=== PATIENT | male | born 1995 | race Caucasian/White ===

== ENCOUNTER 2022-03-03 08:50 | Inpatient (IN) | payer MEDICAID, OTHER ==
--- NOTE | 2022-03-03 09:17 | ED ---
Psych HPI <Robb Schmid - Last Filed: 03/03/22 13:24> - General Source: patient, RN notes reviewed Mode of arrival: ambulatory Limitations: no limitations <Efraín Paul - Last Filed: 03/03/22 14:14> - General Chief Complaint: Psychiatric Symptoms Stated Complaint: mental health Time Seen by Provider: 03/03/22 09:05 - History of Present Illness Initial Comments: 26-year-old male presents emergency Department for psychiatric evaluation. Patient states that he just needs to to be evaluated by psych as he states he was involved in a life that he did not want to be involved in. Patient denies any suicidal or homicidal he has meant to marijuana use no alcohol abuse denies any drug use. Patient states that he has no physical complaints. Patient states he is supposed be on psychiatric medications though is currently not on any meds. (Efraín Paul) - Related Data Home Medications Medication Instructions Recorded Confirmed No Known Home Medications 02/16/15 03/03/22 Allergies Allergy/AdvReac Type Severity Reaction Status Date / Time chlorine Allergy Dyspnea & Uncoded 03/03/22 09:36 Cough Review of Systems ROS Other: All systems not noted in ROS Statement are negative. <Robb Schmid - Last Filed: 03/03/22 13:24> ROS Other: All systems not noted in ROS Statement are negative. <Efraín Paul - Last Filed: 03/03/22 14:14> ROS Statement: Those systems with pertinent positive or pertinent negative responses have been documented in the HPI. Past Medical History Past Medical History: Hypertension History of Any Multi-Drug Resistant Organisms: None Reported Past Surgical History: No Surgical Hx Reported Past Psychological History: Anxiety, Bipolar, Depression Smoking Status: Vaper Past Alcohol Use History: None Reported Past Drug Use History: Marijuana <Efraín Paul - Last Filed: 03/03/22 14:14> General Exam Limitations: no limitations General appearance: alert, in no apparent distress Head exam: Present: atraumatic, normocephalic, normal inspection Eye exam: Present: normal appearance, PERRL, EOMI. Absent: scleral icterus, conjunctival injection, periorbital swelling ENT exam: Present: normal exam, mucous membranes moist Neck exam: Present: normal inspection, full ROM. Absent: tenderness, meningismus, lymphadenopathy Respiratory exam: Present: normal lung sounds bilaterally. Absent: respiratory distress, wheezes, rales, rhonchi, stridor Cardiovascular Exam: Present: regular rate, normal rhythm, normal heart sounds. Absent: systolic murmur, diastolic murmur, rubs, gallop, clicks GI/Abdominal exam: Present: soft, normal bowel sounds. Absent: distended, tenderness, guarding, rebound, rigid Neurological exam: Present: alert Psychiatric exam: Present: normal affect, normal mood Skin exam: Present: warm, dry, intact, normal color. Absent: rash <Efraín Paul - Last Filed: 03/03/22 14:14> Course Vital Signs 03/03/22 08:51 Temperature 98.5 F Pulse Rate 97 Respiratory 18 Rate Blood Pressure 154/86 O2 Sat by Pulse 98 Oximetry Medical Decision Making <Robb Schmid - Last Filed: 03/03/22 13:24> - Medical Decision Making Patient was seen by mental health services with plans for admission. Patient reevaluated by myself. Positive clinical certificate completed. (Robb Schmid) - Lab Data Lab Results 03/03/22 03/03/22 Range/Units 10:21 11:25 Urine Opiates Screen Not Detected (NotDetected) Ur Oxycodone Screen Not Detected (NotDetected) Urine Methadone Screen Not Detected (NotDetected) Ur Propoxyphene Screen Not Detected (NotDetected) Ur Barbiturates Screen Not Detected (NotDetected) U Tricyclic Antidepress Not Detected (NotDetected) Ur Phencyclidine Scrn Not Detected (NotDetected) Ur Amphetamines Screen Not Detected (NotDetected) U Methamphetamines Scrn Not Detected (NotDetected) U Benzodiazepines Scrn Not Detected (NotDetected) Urine Cocaine Screen Not Detected (NotDetected) U Marijuana (THC) Screen Detected H (NotDetected) Coronavirus (PCR) Not Detected (Not Detectd) Disposition <Robb Schmid - Last Filed: 03/03/22 13:24> <Efraín Paul - Last Filed: 03/03/22 14:14> Clinical Impression: Bipolar disorder Disposition: TRANSFER TO PSYCH HOSP/UNIT Condition: Fair Referrals: None,Stated [Primary Care Provider] - 1-2 days
[2022-03-03 10:52] LABS: Amphetamine Screen,Urine Not Detected (NotDetected); Barbiturate Screen,Urine Not Detected (NotDetected); Benzodiazepines Screen,Urine Not Detected (NotDetected); Cocaine Screen,Urine Not Detected (NotDetected); Methadone Screen, Urine Not Detected (NotDetected); Opiate Screen,Urine Not Detected (NotDetected); Oxycodone Screen, Urine Not Detected (NotDetected); Phencyclidine Screen,Urine Not Detected (NotDetected); Tricyclic Antidepressant,Urine Not Detected (NotDetected); Urn Cannabinoid Scrn Detected (NotDetected)
[2022-03-03] MEDS ORDERED: LORazepam 1 MG TAB PO STA (11:07)
[2022-03-03] MEDS ORDERED: ACETAMINOPHEN TAB 325 MG TAB PO PRN (16:27)
[2022-03-03] MEDS ORDERED: MAGNESIUM HYDROXIDE 2,400 MG/10 ML CUP PO PRN (16:27)
[2022-03-03] MEDS ORDERED: LORazepam 1 MG TAB PO PRN (16:27)
[2022-03-03] MEDS ORDERED: HALOPERIDOL LACTATE 5 MG/ML 1 ML VIAL IM PRN (16:27)
[2022-03-03] MEDS ORDERED: MAG HYDROX/AL HYDROX/SIMETH 30 ML CUP PO PRN (16:27)
[2022-03-03] MEDS ORDERED: haloperidoL 5 MG TAB PO PRN (16:31)
[2022-03-03] MEDS ORDERED: LORazepam 2 MG/ML INJ IM PRN (16:31)
[2022-03-04] MEDS: NICOTINE 14MG/24HR PATCH TRANSDERM SCH (08:19)
--- NOTE | 2022-03-04 10:09 | P.HPIM ---
History of Present Illness H&P Date: 03/04/22 Chief Complaint: bipolar disorder 26-year-old male presents emergency Department for psychiatric evaluation. She was admitted to inpatient psychiatric facility with diagnosis of bipolar disorder. Patient is being seen and examined today. Patient reports that he denies any complaints of nausea vomiting fever chills chest pain or shortness of breath. He reports that he's feeling well and improved with his mentation since hospital admission. He reports that he recently used to take medications for his blood pressure however he lost his medical insurance and had not followed up with any doctors recently. Review of Systems Full complete review of system was completed and pertinent positives and negatives noted in the HPI Past Medical History Past Medical History: Hypertension History of Any Multi-Drug Resistant Organisms: None Reported Past Surgical History: No Surgical Hx Reported Past Psychological History: Anxiety, Bipolar, Depression Smoking Status: Vaper Past Alcohol Use History: None Reported Past Drug Use History: Marijuana Medications and Allergies Home Medications Medication Instructions Recorded Confirmed Type No Known Home Medications 02/16/15 03/03/22 History Allergies Allergy/AdvReac Type Severity Reaction Status Date / Time chlorine Allergy Dyspnea & Uncoded 03/03/22 09:36 Cough Physical Exam Osteopathic Statement: *. No significant issues noted on an osteopathic structural exam other than those noted in the History and Physical/Consult. Vitals: Vital Signs Temp Pulse Resp BP Pulse Ox 03/04/22 07:12 97.4 F L 101 H 16 158/99 03/03/22 16:04 97.5 F L 82 16 138/81 96 Intake and Output 03/03/22 03/04/22 03/04/22 22:59 06:59 14:59 Other: Weight 122.1 kg General appearance: alert, in no apparent distress Head exam: Present: atraumatic, normocephalic, normal inspection Eye exam: Present: normal appearance, PERRL, EOMI. Absent: scleral icterus, conjunctival injection, periorbital swelling ENT exam: Present: normal exam, mucous membranes moist Neck exam: Present: normal inspection, full ROM. Absent: tenderness, meningismus, lymphadenopathy Respiratory exam: Present: normal lung sounds bilaterally. Absent: respiratory distress, wheezes, rales, rhonchi, stridor Cardiovascular Exam: Present: regular rate, normal rhythm, normal heart sounds. Absent: systolic murmur, diastolic murmur, rubs, gallop, clicks GI/Abdominal exam: Present: soft, normal bowel sounds. Absent: distended, tenderness, guarding, rebound, rigid Neurological exam: Present: alert Psychiatric exam: Present: normal affect, normal mood Skin exam: Present: warm, dry, intact, normal color. Absent: rash Results Labs: Abnormal Lab Results - Last 24 Hours (Table) 03/03/22 Range/Units 10:21 U Marijuana (THC) Screen Detected H (NotDetected) Assessment and Plan (1) Bipolar disorder Current Visit: Yes Status: Acute Code(s): F31.9 - BIPOLAR DISORDER, UNSPECIFIED SNOMED Code(s): 90371619 Plan: Bipolar disorder -Patient has been admitted to inpatient psychiatric facility. Psychiatric treatment following and managing. Currently patient is on Haldol, Ativan Hypertension -Patient's blood pressure is elevated. We'll start him on lisinopril as he reports that's was his home medication prior to him losing his insurance. Obesity -Patient has a BMI of 37.5 recommendation for diet and education -We will check hemoglobin A1c -Check BMP
[2022-03-04] MEDS ORDERED: ARIPiprazole 5 MG TAB PO STA (11:12)
[2022-03-04 11:28] LABS: Basophils % (A) 0 %; Eosinophils # (A) 0.1 k/uL (0-0.7); Eosinophils % (A) 1 %; HCT 47.6 % (39.0-53.0); HGB 15.7 gm/dL (13.0-17.5); Lymphocytes # (A) 1.7 k/uL (1.0-4.8); Lymphocytes % (A) 15 %; MCH 28.7 pg (25.0-35.0); MCHC 32.9 g/dL (31.0-37.0); MCV 87.1 fL (80.0-100.0); Mean Platelet Volume 7.2; Monocytes # (A) 0.7 k/uL (0-1.0); Monocytes % (A) 6 %; Neutrophils # (A) 8.8 k/uL (1.3-7.7); Neutrophils % (A) 78 %; Platelet Count 374 k/uL (150-450); RBC 5.47 m/uL (4.30-5.90); RDW 12.5 % (11.5-15.5); WBC 11.4 k/uL (3.8-10.6)
[2022-03-04 11:36] LABS: ALT 70 U/L (4-49); AST 48 U/L (17-59); African American GFR (CKD) >90 (>60 ml/min/1.73 sqM); Albumin 4.5 g/dL (3.5-5.0); Alkaline Phosphatase 102 U/L (38-126); Anion Gap 9 mmol/L; Blood Urea Nitrogen 10 mg/dL (9-20); Calcium 9.6 mg/dL (8.4-10.2); Carbon Dioxide 28 mmol/L (22-30); Chloride 101 mmol/L (98-107); Glucose 111 mg/dL (74-99); Non-African American GFR(CKD) >90 (>60 ml/min/1.73 sqM); Potassium 3.7 mmol/L (3.5-5.1); Sodium 138 mmol/L (137-145); Total Bilirubin 0.7 mg/dL (0.2-1.3); Total Protein 7.8 g/dL (6.3-8.2)
--- NOTE | 2022-03-04 13:35 | P.HP ---
Psychiatric H&P - . H&P Date: 03/04/22 History & Physical: Allergies Allergy/AdvReac Type Severity Reaction Status Date / Time chlorine Allergy Dyspnea & Uncoded 03/03/22 09:36 Cough Vital Signs Temp 97.4 F L 03/04/22 07:12 Pulse 101 H 03/04/22 07:12 Resp 16 03/04/22 07:12 BP 158/99 03/04/22 07:12 Pulse Ox 96 03/03/22 16:04 Intake & Output 03/03/22 03/04/22 03/04/22 18:59 06:59 18:59 Weight 122.1 kg Laboratory Last Values WBC 11.4 k/uL (3.8-10.6) H 03/04/22 10:46 RBC 5.47 m/uL (4.30-5.90) 03/04/22 10:46 Hgb 15.7 gm/dL (13.0-17.5) 03/04/22 10:46 Hct 47.6 % (39.0-53.0) 03/04/22 10:46 MCV 87.1 fL (80.0-100.0) 03/04/22 10:46 MCH 28.7 pg (25.0-35.0) 03/04/22 10:46 MCHC 32.9 g/dL (31.0-37.0) 03/04/22 10:46 RDW 12.5 % (11.5-15.5) 03/04/22 10:46 Plt Count 374 k/uL (150-450) 03/04/22 10:46 MPV 7.2 03/04/22 10:46 Neutrophils % 78 % 03/04/22 10:46 Lymphocytes % 15 % 03/04/22 10:46 Monocytes % 6 % 03/04/22 10:46 Eosinophils % 1 % 03/04/22 10:46 Basophils % 0 % 03/04/22 10:46 Neutrophils # 8.8 k/uL (1.3-7.7) H 03/04/22 10:46 Lymphocytes # 1.7 k/uL (1.0-4.8) 03/04/22 10:46 Monocytes # 0.7 k/uL (0-1.0) 03/04/22 10:46 Eosinophils # 0.1 k/uL (0-0.7) 03/04/22 10:46 Basophils # 0.0 k/uL (0-0.2) 03/04/22 10:46 Sodium 138 mmol/L (137-145) 03/04/22 10:46 Potassium 3.7 mmol/L (3.5-5.1) 03/04/22 10:46 Chloride 101 mmol/L (98-107) 03/04/22 10:46 Carbon Dioxide 28 mmol/L (22-30) 03/04/22 10:46 Anion Gap 9 mmol/L 03/04/22 10:46 BUN 10 mg/dL (9-20) 03/04/22 10:46 Creatinine 0.91 mg/dL (0.66-1.25) 03/04/22 10:46 Est GFR (CKD-EPI)AfAm >90 (>60 ml/min/1.73 sqM) 03/04/22 10:46 Est GFR (CKD-EPI)NonAf >90 (>60 ml/min/1.73 sqM) 03/04/22 10:46 Glucose 111 mg/dL (74-99) H 03/04/22 10:46 Calcium 9.6 mg/dL (8.4-10.2) 03/04/22 10:46 Total Bilirubin 0.7 mg/dL (0.2-1.3) 03/04/22 10:46 AST 48 U/L (17-59) 03/04/22 10:46 ALT 70 U/L (4-49) H 03/04/22 10:46 Alkaline Phosphatase 102 U/L (38-126) 03/04/22 10:46 Total Protein 7.8 g/dL (6.3-8.2) 03/04/22 10:46 Albumin 4.5 g/dL (3.5-5.0) 03/04/22 10:46 TSH 1.540 mIU/L (0.465-4.680) 03/04/22 10:46 Urine Opiates Screen Not Detected (NotDetected) 03/03/22 10:21 Ur Oxycodone Screen Not Detected (NotDetected) 03/03/22 10:21 Urine Methadone Screen Not Detected (NotDetected) 03/03/22 10:21 Ur Propoxyphene Screen Not Detected (NotDetected) 03/03/22 10:21 Ur Barbiturates Screen Not Detected (NotDetected) 03/03/22 10:21 U Tricyclic Antidepress Not Detected (NotDetected) 03/03/22 10:21 Ur Phencyclidine Scrn Not Detected (NotDetected) 03/03/22 10:21 Ur Amphetamines Screen Not Detected (NotDetected) 03/03/22 10:21 U Methamphetamines Scrn Not Detected (NotDetected) 03/03/22 10:21 U Benzodiazepines Scrn Not Detected (NotDetected) 03/03/22 10:21 Urine Cocaine Screen Not Detected (NotDetected) 03/03/22 10:21 U Marijuana (THC) Screen Detected (NotDetected) H 03/03/22 10:21 Coronavirus (PCR) Not Detected (Not Detectd) 03/03/22 11:25 03/04/22 13:35 IDENTIFYING DATA: Patient is a single, self-employed, 26-year-old male with a history of depression and anxiety who presents to the hospital under petition and clinical certificate for psychotic and manic behavior and thoughts. HPI: Patient presented to the hospital on 03/03/2022, brought in by his girlfriend for psychiatric evaluation. The patient was producing thoughts the e mergency department the day prior however was discharged home. The patient was presenting a significant disorganized and illogical with a very expansive mood in the emergency department. He was also petition by his mother who wrote, "he has clues to solving problems of the world. Risk of harm to himself. He makes impulsive decisions. He is going to strangers home. He feels drawn to them. He said yesterday that he was going to kill 'someone.' He is not sleeping. He is paranoid that people are out to get him." Upon presentation on the psychiatric unit, the patient continues to present as grossly disorganized with flight of ideas. The patient makes several comments with bizarre associations and some paranoia. The patient first states that "your name Jefe is familiar. I was isela with somebody named Chris. Stanley Mayberry and then they caused me some problems with the law in the past." The patient then also stated that he firmly believes his family is connected somehow to the movie "Marissa andres." The patient is otherwise not reporting any auditory or visual hallucinations. He denies any paranoia however appears to be very suspicious and guarded during the interview. He denies any suicidal or homicidal ideation, intention, and/or plan. He reports no prior attempts at suicide. In regards to any major life stressors, the patient denies any. He reports that he came to the hospital for psychiatric evaluation because he felt that he was "due for an evaluation." The patient reports that he was previously diagnosed and treated for depression and anxiety in the past. He states that it has been many years and that is why he wanted to get checked out. When offered the opportunity to sign in voluntarily on the psychiatric unit, the patient became very suspicious of all the documents. He refused to sign. He is now admitted involuntarily under petition and clinical certificate. PAST PSYCHIATRIC HISTORY: Patient states that he is increasingly diagnosed depression and anxiety. The patient is unable to recall previous psychiatric medications but reports that he was on antidepressants in the past. Patient denies any previous psychiatric hospitalizations. Patient denies any psychiatric outpatient follow-up. Patient denies any history of suicide attempts in the past. PMH: Past Medical History: Hypertension History of Any Multi-Drug Resistant Organisms: None Reported Past Surgical History: No Surgical Hx Reported Past Psychological History: Anxiety, Bipolar, Depression Smoking Status: Vaper Past Alcohol Use History: None Reported Past Drug Use History: Marijuana ALLERGIES: Chlorine CHEMICAL DEPENDENCY HISTORY: The patient reports that he smokes marijuana daily. He denies any tobacco use. He denies any heavy alcohol use since 2018 after he had a DUI. He denies any illicit drug use. FAMILY PSYCHIATRIC/SUBSTANCE USE HISTORY: He reports that his mother had depression and anxiety. SOCIAL HISTORY: Patient was born and raised in [place], [place]. He currently lives with his grandmother and step grandfather. He is single and has no children. He is currently dating his girlfriend. He has his GED and attended some college. He is currently self-employed and works by [employer]. He denies any current legal issues. MENTAL STATUS EXAM: General Appearance: Patient appears to be stated age is alert, directable, and attempts to cooperate. Patient appears to have slightly disheveled hygiene and grooming. Obese body habitus. Behavior: Patient displays elevated psychomotor activity. Speech: Patient's speech is pressured, hyperverbal, difficult to follow. Mood/Affect: Patient reports their mood is "excellent," affect is expansive and euphoric. Suicidality/Homicidality: Patient denies any suicidal or homicidal ideation. Perceptions: Patient denies any visual hallucinations and denies any auditory hallucinations Though content/process: Flight of ideas, paranoia, and loose associations are evident. Memory and concentration: AOX3, grossly intact for the purposes of this session. Concentration appears to be grossly poor. Judgment and insight: Poor STRENGTHS/WEAKNESSES: Strength is that the patient appears to have supportive family. Weakness is that the patient has poor insight. He also uses an excessive amount of marijuana. INTELLECT: average IMPRESSIONS: Bipolar 1 disorder, manic episode; rule out schizoaffective disorder versus psychosis secondary to marijuana Cannabis use disorder PLAN: -Patient is admitted under involuntary status to [facility] for stabilization of psychiatric symptoms and safety. A second certification was completed and along with petition will be filed for court. -Medications : Will start patient on Abilify 5 mg by mouth daily for mood stabilization/psychosis Depakote 500 mg by mouth at bedtime for mood stabilization -Ativan and Haldol PRN for agitation/aggression -Patient was counselled on substance abuse and desired to cut back on use -Patient was informed of the risks, benefits and side effects of the medication and patient verbally consented to taking the medications. Patient signed med consent form and was placed in chart. -Internal Medicine consult to perform medical evaluation and physical. -SW on board for discharge planning. Encourage patient to participate in groups to work on coping skills. 03/04/22 13:35
[2022-03-04 18:03] LABS: Chol/HDL Ratio 7.15 Ratio; LDL Cholesterol,Calculated 136.5 mg/dL (0.0-131.0)
[2022-03-04] MEDS ORDERED: DIVALPROEX ER 500 MG TAB.ER.24H PO SCH (21:00)
[2022-03-05] MEDS: lisinopriL 10 MG TAB PO SCH (08:37)
[2022-03-05] MEDS: NICOTINE 14MG/24HR PATCH TRANSDERM SCH (08:37)
[2022-03-05] MEDS ORDERED: ARIPiprazole 10 MG TAB PO SCH (09:00)
--- NOTE | 2022-03-05 11:59 | P.PN ---
Progress Note - Text Progress Note Date: 03/05/22 Interval History: Patient was seen wandering the hallways and was directable and agreeable to speak with marketing copywriter in the office. The patient reports he is feeling better. He states the medications have helped him "focus my thoughts." He is not reporting any suicidal or homicidal ideation, intention, and/or plan. He denies any auditory or visual hallucinations. He is med adherent and denies any side effects at this time. He reports no issues with sleep or appetite. The patient denies any grandiose delusions. He reports no mood lability or impulsive decision making. Mental Status Exam: General Appearance: Patient appears to be stated age is alert, directable, and cooperative. Behavior: Patient is calmly seated without any agitated behavior. Eye contact is appropriate. Speech: Patient's speech is fluent and nonpressured. Mood/Affect: Mood is "feeling better." Affect is less expansive but continues to be expansive. Suicidality/Homicidality: Patient denies any suicidal or homicidal ideation, intention, and/or plan. Perceptions: Patient denies any auditory or visual hallucinations. Though content/process: Flight of ideas but less so. Memory and concentration: AOX3, grossly intact for the purposes of this session Judgment and insight: Improving mildly Vital Signs Temp 97.4 F L 03/04/22 07:12 Pulse 101 H 03/04/22 07:12 Resp 16 03/04/22 07:12 BP 158/99 03/04/22 07:12 Pulse Ox 96 03/03/22 16:04 Laboratory Results - Last 24 Hours 03/04/22 03/04/22 10:46 10:[address] Glu mg/dL 118 Hemoglobin A1c 5.8 Triglycerides 212.00 H Cholesterol 208.00 H LDL Cholesterol, Calc 136.5 H VLDL Cholesterol, Calc 42.40 H HDL Cholesterol 29.10 L Cholesterol/HDL Ratio 7.15 TSH 1.540 Assessment Bipolar 1 disorder, manic episode; rule out schizoaffective disorder versus psychosis secondary to marijuana Cannabis use disorder Plan: -Patient continues to meet criteria for inpatient psychiatric admission for symptom stabilization and safety. Patient has been petitioned and certified. -Medications: Increase Abilify to 10 mg daily for depression/mood stabilization Increase Depakote to 750 mg at bedtime for mood stabilization. -When necessary Ativan and Haldol for agitation/aggression. -SW on board for discharge planning. Encouraged the patient to participate in milieu.
[2022-03-05] MEDS ORDERED: DIVALPROEX ER 250 MG TAB.ER.24H PO SCH (21:00)
[2022-03-06] MEDS: lisinopriL 10 MG TAB PO SCH (08:01)
[2022-03-06] MEDS: NICOTINE 14MG/24HR PATCH TRANSDERM SCH (08:01)
[2022-03-06] MEDS ORDERED: ARIPiprazole 15 MG TAB PO SCH (09:00)
--- NOTE | 2022-03-06 11:20 | P.PN ---
Progress Note - Text Progress Note Date: 03/06/22 Interval History: Patient was seen wandering the hallways and was directable and agreeable to speak with poem writer in the office. The patient has been intrusive with numerous peers, staff, and has been requiring numerous episodes of redirection. The patient has been displaying significant symptoms of elevated psychomotor activity, mood lability, and grandiosity/narcissism. The patient reports that he feels like he is ready to be discharged. He is currently upset that he is not going to be discharged today. He is currently denying any suicidal or homicidal ideation, intention, and/or plan. He denies any auditory or visual hallucinations. He is denying any racing thoughts however when confronted with the observations of staff and this provider, the patient becomes very angry and bizarre. The patient takes forms and papers from this provider's desk and puts them in his pocket. When asked to return the objects, the patient does after much redirection. When informed that this is part of the reason why he requires continued inpatient psychiatric hospitalization, the patient replies irritably, "I gave them back didn't I!?" Mental Status Exam: General Appearance: Patient appears to be stated age is alert, difficult to direct, and intermittently cooperative. Behavior: Patient displays elevated psychomotor activity and restlessness. Very bizarre and intrusive behavior. Speech: Patient's speech is loud in volume, pressured, spontaneous, hyperverbal. Mood/Affect: Mood is "I'm ready to go." Affect is expansive and irritable. Suicidality/Homicidality: Patient denies any suicidal or homicidal ideation, intention, and/or plan. Perceptions: Patient denies any auditory or visual hallucinations. Though content/process: Flight of ideas is evident. Nonlinear. Memory and concentration: AOX3, grossly intact for the purposes of this session Judgment and insight: Very poor. Vital Signs Temp 97.4 F L 03/04/22 07:12 Pulse 101 H 03/04/22 07:12 Resp 16 03/04/22 07:12 BP 158/99 03/04/22 07:12 Pulse Ox 96 03/03/22 16:04 Assessment Bipolar 1 disorder, manic episode; rule out schizoaffective disorder versus psychosis secondary to marijuana Cannabis use disorder Plan: -Patient continues to meet criteria for inpatient psychiatric admission for symptom stabilization and safety. Patient has been petitioned and certified. -Medications: We will discontinue Abilify due to concerns for possible akathisia. We will start Risperdal 2 mg by mouth twice a day for mood stabilization/psychosis. Consider titration of this medication over the weekend pending patient's response. Increase Depakote to 1500 mg at bedtime for mood stabilization. -When necessary Ativan and Haldol for agitation/aggression. -SW on board for discharge planning. Encouraged the patient to participate in milieu.
[2022-03-06] MEDS: DIVALPROEX ER 500 MG TAB.ER.24H PO SCH (20:23)
[2022-03-06] MEDS: risperiDONE 2 MG TAB PO SCH (20:23)
[2022-03-06] MEDS ORDERED: DIVALPROEX ER 500 MG TAB.ER.24H PO SCH (21:00)
[2022-03-07] MEDS: lisinopriL 10 MG TAB PO SCH (07:52)
[2022-03-07] MEDS: risperiDONE 2 MG TAB PO SCH ×2 (07:52→19:51)
[2022-03-07] MEDS: NICOTINE 14MG/24HR PATCH TRANSDERM SCH (07:52)
--- NOTE | 2022-03-07 12:00 | P.PN ---
Subjective Progress Note Date: 03/07/22 Principal diagnosis: Bipolar disorder type I Cannabis use disorder unspecified Subjective data: I decided to come to the hospital because I have not had any treatment or follow-up since 2019 when I lost my insurance I was due for assessment and me and my girlfriend decided that I should come in the hospital Patient was unable to give any specifics when asked why inpatient was chosen over outpatient assessment He denies that he was suicidal or homicidal He denies any auditory or visual hallucinations He states that things were just moving too fast with his girlfriend Objective data: Patient initially seemed to be appropriate in interaction but seemed to escalate with anxiety and hyperactivity as the interview progressed Affect at this time remains mildly euphoric Thought processes are goal-directed but somewhat circumstantial and tangential Patient denies any suicidal or homicidal ideations He reports living with his grandmother where he was dealing with [employer]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 Formal and operational judgment and insight remain somewhat concrete Insight and his problem is poor Plan: Continue current pharmacological intervention and supportive care Patient continues to reinforce that he is leaving on Wednesday without any basis for his conclusion Patient continues to to be in need of current hospitalization for stabilization and safety Continue current pharmacological intervention and supportive care Eric Katie Maldonado 03/07/2022 Objective - Vital Signs Vital signs: Vital Signs Temp 97.2 F L 03/07/22 06:59 Pulse 126 H 03/07/22 07:51 Resp 20 03/07/22 07:51 BP 155/93 03/07/22 07:51 Pulse Ox 96 03/03/22 16:04 - Labs CBC & Chem 7: 03/04/22 10:46 03/04/22 10:46
[2022-03-07] MEDS: DIVALPROEX ER 500 MG TAB.ER.24H PO SCH (19:51)
[2022-03-08] MEDS: lisinopriL 10 MG TAB PO SCH (08:27)
[2022-03-08] MEDS: risperiDONE 2 MG TAB PO SCH ×2 (08:27→20:46)
[2022-03-08] MEDS: NICOTINE 14MG/24HR PATCH TRANSDERM SCH (08:27)
--- NOTE | 2022-03-08 10:38 | P.PN ---
Subjective Progress Note Date: 03/08/22 Principal diagnosis: Bipolar disorder type I Cannabis use disorder unspecified Subjective data: I feel that I am totally ready and I could handle anything that comes along His son taking the medications and they're helping He denies that he was suicidal or homicidal He denies any auditory or visual hallucinations Objective data: Patient initially seemed to be appropriate in interaction but seemed to get excited easily Affect at this time remains mildly euphoric Thought processes are goal-directed but somewhat circumstantial and tangential Patient denies any suicidal or homicidal ideations Formal and operational judgment and insight remain somewhat concrete Insight and his problem is poor Plan: Continue current pharmacological intervention and supportive care Patient continues to reinforce that he is leaving on Wednesday without any basis for his conclusion Patient continues to to be in need of current hospitalization for stabilization and safety Continue current pharmacological intervention and supportive care [facility] 03/08/2022 Objective - Vital Signs Vital signs: Vital Signs Temp 97.2 F L 03/07/22 06:59 Pulse 120 H 03/08/22 08:28 Resp 20 03/07/22 07:51 BP 162/90 03/08/22 08:28 Pulse Ox 96 03/03/22 16:04 Intake & Output 03/07/22 03/08/22 03/08/22 18:59 06:59 18:59 Weight 121.2 kg - Labs CBC & Chem 7: 03/04/22 10:46 03/04/22 10:46
[2022-03-08] MEDS: DIVALPROEX ER 500 MG TAB.ER.24H PO SCH (20:46)
[2022-03-09 06:08] VITALS: BP 147/82; PULSE 103; RESP 16; TEMP 98.1
[2022-03-09 07:02] LABS: ALT 85 U/L (4-49); AST 56 U/L (17-59); African American GFR (CKD) >90 (>60 ml/min/1.73 sqM); Albumin 3.8 g/dL (3.5-5.0); Alkaline Phosphatase 71 U/L (38-126); Anion Gap 7 mmol/L; Blood Urea Nitrogen 9 mg/dL (9-20); Calcium 9.1 mg/dL (8.4-10.2); Carbon Dioxide 29 mmol/L (22-30); Chloride 104 mmol/L (98-107); Glucose 94 mg/dL (74-99); Non-African American GFR(CKD) >90 (>60 ml/min/1.73 sqM); Potassium 4.5 mmol/L (3.5-5.1); Sodium 140 mmol/L (137-145); Total Bilirubin 0.5 mg/dL (0.2-1.3); Total Protein 6.8 g/dL (6.3-8.2)
[2022-03-09] MEDS: risperiDONE 2 MG TAB PO SCH (07:48)
[2022-03-09] MEDS: lisinopriL 10 MG TAB PO SCH (07:48)
[2022-03-09] MEDS: NICOTINE 14MG/24HR PATCH TRANSDERM SCH (07:49)
[2022-03-09 08:12] LABS: Valproic Acid (Depakene) 64.9 ug/mL
--- NOTE | 2022-03-09 12:42 | P.DS ---
Providers Date of admission: 03/03/22 15:11 Expected date of discharge: 03/09/22 Attending physician: Jefe Snowden MD Consults: 03/03/22 16:27 Consult Physician Routine Consulting Provider: Jose Rutherford Consult Reason/Comments: H&P and medical Do you want consulting provider notified?: Yes Primary care physician: Stated None - Discharge Diagnosis(es) (1) Severe manic bipolar 1 disorder with psychotic behavior Current Visit: Yes Status: Acute Priority: High (2) Cannabis abuse Current Visit: Yes Status: Chronic Priority: Medium Hospital Course: Admission HPI: Patient is a single, self-employed, 26-year-old male with a history of depression and anxiety who presents to the hospital under petition and clinical certificate for psychotic and manic behavior and thoughts. Patient presented to the hospital on 03/03/2022, brought in by his girlfriend for psychiatric evaluation. The patient was producing thoughts the emergency department the day prior however was discharged home. The patient was presenting a significant disorganized and illogical with a very expansive mood in the emergency department. He was also petition by his mother who wrote, "he has clues to solving problems of the world. Risk of harm to himself. He makes impulsive decisions. He is going to strangers home. He feels drawn to them. He said yesterday that he was going to kill 'someone.' He is not sleeping. He is paranoid that people are out to get him." Upon presentation on the psychiatric unit, the patient continues to present as grossly disorganized with flight of ideas. The patient makes several comments with bizarre associations and some paranoia. The patient first states that "your name Jefe is familiar. I was isela with somebody named Chris. Stanley Mayberry and then they caused me some problems with the law in the past." The patient then also stated that he firmly believes his family is connected somehow to the movie "[employer]." The patient is otherwise not reporting any auditory or visual hallucinations. He denies any paranoia however appears to be very suspicious and guarded during the interview. He denies any suicidal or homicidal ideation, intention, and/or plan. He reports no prior attempts at suicide. In regards to any major life stressors, the patient denies any. He reports that he came to the hospital for psychiatric evaluation because he felt that he was "due for an evaluation." The patient reports that he was previously diagnosed and treated for depression and anxiety in the past. He states that it has been many years and that is why he wanted to get checked out. When offered the opportunity to sign in voluntarily on the psychiatric unit, the patient became very suspicious of all the documents. He refused to sign. He is now admitted involuntarily under petition and clinical certificate. Patient states that he is increasingly diagnosed depression and anxiety. The patient is unable to recall previous psychiatric medications but reports that he was on antidepressants in the past. Patient denies any previous psychiatric hospitalizations. Patient denies any psychiatric outpatient follow-up. Patient denies any history of suicide attempts in the past. Hospital course: Upon admission to the unit patient was initially presenting with significant manic symptoms flight of ideas, euphoria, and an expansive affect. He had very poor impulse control and mood lability. The patient was initially not agreeing with inpatient psychiatric hospitalization or medications and therefore he was petitioned and certified and a significant clinical certificate was filled out. Patient was started on a regimen of Risperdal and Depakote for mood stabilization. The patient had intermittent episodes of agitation as well as multiple poor interactions with staff and peers. As his medications were gradually titrated, the patient displayed a significant response. The patient deferred mental health court. He displays significant improvement in regards his target symptoms of abel and develop better insight and judgment. On the day of discharge, the patient is not reporting any suicidal or homicidal ideation, intention, and/or plan. He is not reporting any access to firearms or other weapons. He reports no paranoia or other delusions at this time. He denies any significant symptoms of abel and reports no racing thoughts, increased energy, grandiosity, or other delusional thought content. The patient was counseled length importance of medication adherence and appropriate outpatient follow-up. He was also counseled to follow-up with his appointments for mental health and for primary care. The patient does have a significant history of heavy marijuana use and was counseled on abstaining from all substances including alcohol, marijuana, tobacco, and other illicit drugs. Prior to discharge, family meeting will be arranged by health and social care teacher to answer questions and ensure safety. Mental status exam: General Appearance: Patient appears to be stated age is alert, pleasant, and cooperative. Patient is in no acute distress and has fair hygiene and grooming Behavior: Patient is calmly seated without any agitated behavior. Eye contact is appropriate. Speech: Patient's speech is fluent and nonpressured. Mood/Affect: Patient reports their mood is "much better", affect is congruent and euthymic. Suicidality/Homicidality: Patient denies having any suicidal or homicidal ideation intent or plan. Perceptions: Patient denies any auditory or visual hallucinations. Though content/process: There is no evidence of any delusional thought content and thought process is linear and goal-directed. Patient is future oriented. Memory and concentration: AOX3, grossly intact for the purposes of this session. Can spell "WORLD" backwards correctly. Judgment and insight: Improved with guarded prognosis Vital Signs Temp 98.1 F 03/09/22 06:07 Pulse 103 H 03/09/22 06:07 Resp 16 03/09/22 06:07 BP 147/82 03/09/22 06:07 Pulse Ox 100 03/09/22 06:07 Intake & Output 03/08/22 03/09/22 03/09/22 18:59 06:59 18:59 Weight 121.2 kg Impression: Bipolar 1 disorder, manic episode Cannabis use disorder Plan: -Continue with discharge today as patient has improved and stabilized psychiatrically and is not currently an imminent threat to himself and/or others. Patient will remain at chronically elevated risk for harm to self and/or others due to his impulsivity and polysubstance abuse. -Continue medications: Depakote 1500 mg by mouth at bedtime for mood stabilization - Patient counseled to follow up with primary care physician to monitor liver enzymes. Habitrol patches for nicotine cessation Risperdal 2 mg by mouth twice a day for mood stabilization/psychosis Lisinopril for hypertension -Patient was counseled on the need for medication compliance and appropriate follow-up at mental health and also primary care for medical issues. Patient verbalized understanding and agreed. -Social work to arrange for and conduct family meeting to ensure safety upon discharge and answer any questions/concerns. Social work also to arrange for patients follow up appointments with [facility] for psychiatric care along with follow up with primary care provider. -Patient counseled on abstaining from recreational drugs and marijuana and alcohol. Was informed/educated on the adverse effects on their physical and mental health. Patient verbally agreed and understood. Patient was offered substance abuse treatment however declined at this time. -Patient was instructed to return to the hospital or seek immediate medical care if their psychiatric or medical symptoms do worsen or reoccur. -Psychoeducation and supportive therapy provided to patient. Risks and benefits of pharmacological treatment versus the risks and benefits of nontreatment weight and discussed. Informed consent discussion held. Common side effects of psychotropics discussed such as, but not limited to headache, GI disturbance, sexual dysfunction, movement disorders, sedation, and orthostatic hypotension. Life threatening and blackbox warnings of prescribed medications also discussed. Potential risks of operating a vehicle or heavy machinery discussed with patient at length. Advised on importance of compliance and a reliable and responsible manner. Patient advised to review FDA consumer labeling of all medications prior to taking. Patient verbalized understanding of potential risks, and agrees with current treatment plan. Patient advised to medically contact physician/emergency personnel if any acute changes in condition occur. Allergies Allergy/AdvReac Type Severity Reaction Status Date / Time chlorine Allergy Dyspnea & Uncoded 03/03/22 09:36 Cough Laboratory Results WBC 11.4 k/uL (3.8-10.6) H 03/04/22 10:46 RBC 5.47 m/uL (4.30-5.90) 03/04/22 10:46 Hgb 15.7 gm/dL (13.0-17.5) 03/04/22 10:46 Hct 47.6 % (39.0-53.0) 03/04/22 10:46 MCV 87.1 fL (80.0-100.0) 03/04/22 10:46 MCH 28.7 pg (25.0-35.0) 03/04/22 10:46 MCHC 32.9 g/dL (31.0-37.0) 03/04/22 10:46 RDW 12.5 % (11.5-15.5) 03/04/22 10:46 Plt Count 374 k/uL (150-450) 03/04/22 10:46 MPV 7.2 03/04/22 10:46 Neutrophils % 78 % 03/04/22 10:46 Lymphocytes % 15 % 03/04/22 10:46 Monocytes % 6 % 03/04/22 10:46 Eosinophils % 1 % 03/04/22 10:46 Basophils % 0 % 03/04/22 10:46 Neutrophils # 8.8 k/uL (1.3-7.7) H 03/04/22 10:46 Lymphocytes # 1.7 k/uL (1.0-4.8) 03/04/22 10:46 Monocytes # 0.7 k/uL (0-1.0) 03/04/22 10:46 Eosinophils # 0.1 k/uL (0-0.7) 03/04/22 10:46 Basophils # 0.0 k/uL (0-0.2) 03/04/22 10:46 Sodium 140 mmol/L (137-145) 03/09/22 05:55 Potassium 4.5 mmol/L (3.5-5.1) 03/09/22 05:55 Chloride 104 mmol/L (98-107) 03/09/22 05:55 Carbon Dioxide 29 mmol/L (22-30) 03/09/22 05:55 Anion Gap 7 mmol/L 03/09/22 05:55 BUN 9 mg/dL (9-20) 03/09/22 05:55 Creatinine 0.87 mg/dL (0.66-1.25) 03/09/22 05:55 Est GFR (CKD-EPI)AfAm >90 (>60 ml/min/1.73 sqM) 03/09/22 05:55 Est GFR (CKD-EPI)NonAf >90 (>60 ml/min/1.73 sqM) 03/09/22 05:55 Glucose 94 mg/dL (74-99) 03/09/22 05:[address] Glu mg/dL 118 03/04/22 10:46 Hemoglobin A1c 5.8 % (0.0-6.0) 03/04/22 10:46 Calcium 9.1 mg/dL (8.4-10.2) 03/09/22 05:55 Total Bilirubin 0.5 mg/dL (0.2-1.3) 03/09/22 05:55 AST 56 U/L (17-59) 03/09/22 05:55 ALT 85 U/L (4-49) H 03/09/22 05:55 Alkaline Phosphatase 71 U/L (38-126) 03/09/22 05:55 Total Protein 6.8 g/dL (6.3-8.2) 03/09/22 05:55 Albumin 3.8 g/dL (3.5-5.0) 03/09/22 05:55 Triglycerides 212.00 mg/dL (0.00-149.00) H 03/04/22 10:46 Cholesterol 208.00 mg/dL (0.00-200.00) H 03/04/22 10:46 LDL Cholesterol, Calc 136.5 mg/dL (0.0-131.0) H 03/04/22 10:46 VLDL Cholesterol, Calc 42.40 mg/dL (5.00-40.00) H 03/04/22 10:46 HDL Cholesterol 29.10 mg/dL (40.00-60.00) L 03/04/22 10:46 Cholesterol/HDL Ratio 7.15 Ratio 03/04/22 10:46 TSH 1.540 mIU/L (0.465-4.680) 03/04/22 10:46 Urine Opiates Screen Not Detected (NotDetected) 03/03/22 10:21 Ur Oxycodone Screen Not Detected (NotDetected) 03/03/22 10:21 Urine Methadone Screen Not Detected (NotDetected) 03/03/22 10:21 Ur Propoxyphene Screen Not Detected (NotDetected) 03/03/22 10:21 Ur Barbiturates Screen Not Detected (NotDetected) 03/03/22 10:21 Valproic Acid 64.9 ug/mL 03/09/22 05:55 U Tricyclic Antidepress Not Detected (NotDetected) 03/03/22 10:21 Ur Phencyclidine Scrn Not Detected (NotDetected) 03/03/22 10:21 Ur Amphetamines Screen Not Detected (NotDetected) 03/03/22 10:21 U Methamphetamines Scrn Not Detected (NotDetected) 03/03/22 10:21 U Benzodiazepines Scrn Not Detected (NotDetected) 03/03/22 10:21 Urine Cocaine Screen Not Detected (NotDetected) 03/03/22 10:21 U Marijuana (THC) Screen Detected (NotDetected) H 03/03/22 10:21 Coronavirus (PCR) Not Detected (Not Detectd) 03/03/22 11:25 Patient Condition at Discharge: Stable Plan - Discharge Summary New Discharge Prescriptions: New Divalproex ER [Depakote ER] 1,500 mg PO HS 30 Days Nicotine 14Mg/24Hr Patch [Habitrol] 1 patch TRANSDERM DAILY 30 Days patch risperiDONE [RisperDAL] 2 mg PO BID 30 Days tab lisinopriL [Zestril] 10 mg PO DAILY 30 Days tab Discharge Medication List Divalproex ER [Depakote ER] 1,500 mg PO HS 30 Days 03/09/22 [Rx] Nicotine 14Mg/24Hr Patch [Habitrol] 1 patch TRANSDERM DAILY 30 Days patch 03/09/22 [Rx] lisinopriL [Zestril] 10 mg PO DAILY 30 Days tab 03/09/22 [Rx] risperiDONE [RisperDAL] 2 mg PO BID 30 Days tab 03/09/22 [Rx] Follow up Appointment(s)/Referral(s): [facility] [Outside] - 03/11/22 3:30 pm (03/11/22 @ 3:30pm- Intake w/ CM at [place] office) [facility] Patient Instructions/Handouts: How to Stop Smoking (DC), Bipolar Disorder (DC) Activity/Diet/Wound Care/Special Instructions: Activity and diet as tolerated. Avoid the use of street drugs and alcohol. Take all medications as prescribed. When you are in need of refills on your medications please contact your medical provider and/or outpatient psychiatrist to have this done. Please go to scheduled outpatient appointment for aftercare treatment. If symptoms return or become worse, call the crisis line at and/or go to the nearest emergency room for evaluation Discharge Disposition: HOME SELF-CARE
== END 2022-03-09 13:48 | disposition home or self-care (01) | DRG 885 ==
LOC: EC 08:50 → 3MHU 15:11
PROVIDERS: ADMIT Psychiatry & Neurology Psychiatry; ATTEND Psychiatry & Neurology Psychiatry
DX: F31.2 Bipolar disorder, current episode manic severe with psychotic features (principal); E66.9 Obesity, unspecified; F12.90 Cannabis use, unspecified, uncomplicated; F41.9 Anxiety disorder, unspecified; F90.9 Attention-deficit hyperactivity disorder, unspecified type; I10 Essential (primary) hypertension; Z68.37 Body mass index [BMI] 37.0-37.9, adult; Z79.899 Other long term (current) drug therapy; Z81.8 Family history of other mental and behavioral disorders; Z20.822 Contact with and (suspected) exposure to COVID-19
CPT/HCPCS: 80053; 80061; 80164; 80306; 82075; 83036; 84443; 85025; 87635; 99285